=== PATIENT | female | born 1990 | race Caucasian/White ===

== ENCOUNTER 2020-09-07 11:59 | Emergency (ER) | payer MEDICARE, MEDICAID ==
[~2020-09-07] VITALS: Ht 157.5 cm; Wt 45.4 kg
[2020-09-07] MEDS ORDERED: LORazepam 2MG/ML-1ML VIAL ONE (13:37)
[2020-09-07] MEDS ORDERED: ACETAMINOPHEN 650 MG RECT SUPP PR ONE ×2 (14:15→18:45)
[2020-09-07] MEDS ORDERED: cefTRIAXone 1GM/50ML D5W 50 ML IV ONE ×2 (14:34→14:45)
[2020-09-07] MEDS ORDERED: SODIUM CHLORIDE 0.9% 1,000 ML IV ONE ×2 (14:45→18:45)
[2020-09-07 15:54] LABS: Hemoglobin 16.6 g/dL (12.2-16.2); Mean Corpuscular Hemoglobin 32.5 pg (28.0-32.0); Red Cell Distribution Width 16.5 % (11.8-14.3); White Blood Cell 13.6 10^3/uL (4.4-10.8)
[2020-09-07 15:56] LABS: Hematocrit 48.4 % (36.0-46.0); Mean Corpuscular Hgb Conc. 34.2 g/dL (32.0-36.0); Mean Corpuscular Volume 94.9 fL (80.0-100.0); Platelet Count (auto) 52 10^3/uL (140-450)
[2020-09-07 15:59] LABS: Albumin 1.8 g/dL (3.4-5.0); BUN/Creatinine Ratio 24.1; Basophils % (manual) 0 (0.0-2.0); Blast Cells 0; Calcium 7.7 mg/dL (8.5-10.1); Eosinophils % (manual) 0 (0-7); Potassium 3.4 mmol/L (3.5-5.1); Promyelocytes % 0; Reactive Lymphocytes 0
[2020-09-07 16:03] LABS: Bilirubin, Total 2.4 mg/dL (0.2-1.0)
[2020-09-07 16:04] LABS: Lactic Acid w/Reflex 2.8 mmol/L (0.4-2.0)
[2020-09-07 16:36] LABS: Band Neutrophils % (manual) 8; Lymphocytes % (manual) 6 (10.0-50.0); Metamyelocytes % 7; Monocytes % (manual) 9 (0-12); Myelocytes % 1
[2020-09-07] MEDS ORDERED: ASPirin 81 mg TAB PO ONE (16:45)
[2020-09-07] MEDS ORDERED: CLOPIDOGREL BISULFATE 75 MG TAB PO ONE (16:45)
[2020-09-07 16:57] LABS: Urine Bacteria FEW /hpf (None Seen); Urine Blood Negative /uL (Negative); Urine Mucus FEW (None Seen); Urine Specific Gravity 1.032 (1.001-1.035); Urine WBC 2 /hpf (0 - 5)
[2020-09-07] MEDS ORDERED: POTASSIUM EFFERVESENT TAB 25 MEQ PO ONE (18:15)
[2020-09-07] MEDS ORDERED: LORazepam 2MG/ML-1ML VIAL IV ONE (18:45)
[2020-09-07] MEDS ORDERED: ONDANSETRON HCL 4 MG/2 ML VIAL IV ONE (19:45)
[2020-09-07] MEDS ORDERED: MORPHINE SULF INJ 2 MG/ML SYRINGE 1ML IV ONE (19:45)
[2020-09-07 21:34] VITALS: BP 124/73
== END 2020-09-07 22:43 | disposition short-term general hospital (02) ==
LOC: EDBD 11:59 → ER 11:59
DX: I63.9 Cerebral infarction, unspecified (principal); Q90.9 Down syndrome, unspecified; R77.8 Other specified abnormalities of plasma proteins; R74.8 Abnormal levels of other serum enzymes; E87.6 Hypokalemia; Z20.828 Contact with and (suspected) exposure to other viral communicable diseases
CPT/HCPCS: 36415; 70450; 71045; 80053; 81001; 83605; 84484; 85007; 85027; 87040; 87077; 87186; 93005; 96365; 96366; 96375; 99285; J0696; J2060; J2270; J2405; 96361